=== PATIENT | male | born 1960 | race Caucasian/White ===

== ENCOUNTER 2017-06-15 08:33 | Emergency (ER) | payer BC ==
[~2017-06-15] VITALS: Ht 170.2 cm; Wt 95.3 kg
[2017-06-15 08:33] VITALS: BP_SYST 165
[2017-06-15] MEDS ORDERED: ONDANSETRON 4 MG ODT TAB PO ONE (08:45)
[2017-06-15] MEDS ORDERED: KETOROLAC TROMETHAMINE 60 MG/2 ML VIAL IM ONE (08:45)
[2017-06-15] MEDS ORDERED: HYDROmorphone 2 MG/ML VIAL IM ONE (08:45)
[2017-06-15] MEDS ORDERED: DIAZEPAM 5 MG TABLET (VALIUM) PO ONE (08:45)
[2017-06-15 10:10] VITALS: BP_SYST 135
== END 2017-06-15 10:10 | disposition home or self-care (01) ==
LOC: SED 08:33
DX: M54.5 Low back pain (principal)
CPT/HCPCS: 96372; 99284; J1170; J1885; Q0162

== ENCOUNTER 2017-08-09 14:05 | Emergency (ER) | payer BC ==
[~2017-08-09] VITALS: Ht 172.7 cm; Wt 93.0 kg
--- NOTE | 2017-08-09 14:55 | NUR ---
Patient to [facility] for evaluation. Side rails up. Report given to Rudi.
[2017-08-09 15:17] VITALS: BP_SYST 123
--- NOTE | 2017-08-09 15:22 | NUR ---
ER at bedside examining patient.
--- NOTE | 2017-08-09 15:23 | NUR ---
Pt brought by self, A&Ox4 ,pt c/o flu s/s, diaphoresis for 4 days and today he passed out, + KO, LAC noted on L eyebrow, skin pink and warm, pt follows commands, cap refill <3.
[2017-08-09] MEDS ORDERED: NACL 0.9% 1,000 ML IV ONE (15:30)
[2017-08-09 16:10] LABS: EOSINOPHILS % (AUTO) 0.1 % (0.0-4.0); HEMATOCRIT 48.3 % (36-54); HEMOGLOBIN 15.8 g/dL (14.0-18.0); LYMPHOCYTES # (AUTO) 0.8 K/uL (1.0-5.5); LYMPHOCYTES % (AUTO) 10.8 % (20.5-51.5); MEAN CORPUSCULAR HEMOGLOBIN 28 pg (27-31); MEAN CORPUSCULAR HGB CONC 33 % (32-36); MEAN CORPUSCULAR VOLUME 86 fL (79.0-98.0); MONOCYTES # (AUTO) 0.7 K/uL (0.0-1.0); MONOCYTES % (AUTO) 9.6 % (1.7-9.3); PLATELET COUNT (AUTO) 194 K/uL (130-430); RED BLOOD CELL COUNT(AUTO) 5.65 MIL/uL (4.2-6.2); RED CELL DISTRIBUTION WIDTH 12.2 % (9.0-15.0); WHITE BLOOD COUNT (AUTO) 7.4 K/uL (4.8-10.8)
[2017-08-09 16:11] LABS: NEUTROPHILS # (AUTO) 5.8 K/uL (1.8-7.7); NEUTROPHILS % (AUTO) 79.5 % (40.0-70.0)
[2017-08-09 16:19] LABS: INR 1.1 (0.80-1.20); PROTHROMBIN TIME 10.9 SECS (9.5-12.5)
[2017-08-09 16:33] LABS: ANION GAP 9 (5-15); CALCIUM 8.9 mg/dL (8.4-11.0); CHLORIDE 98 mmol/L (98-107); CREATININE 1.14 mg/dL (0.55-1.30); GLUCOSE 122 mg/dL (70-99); POTASSIUM 4.2 mmol/L (3.5-5.1); SODIUM SERUM 133 mmol/L (136-145); UREA NITROGEN, BLOOD 17 mg/dL (8-21)
[2017-08-09 16:39] LABS: ALANINE AMINOTRANSFERASE 54 U/L (12-78); ALBUMIN 3.7 g/dL (3.4-4.8); ASPARTATE AMINOTRANSFERASE 37 U/L (10-37); TOTAL BILIRUBIN 0.6 mg/dL (0.0-1.0)
[2017-08-09 16:46] LABS: GFR AFRICAN AMERICAN 85 mL/min (>90)
[2017-08-09 17:50] LABS: ALCOHOL, BLOOD < 3 mg/dL (<10)
[2017-08-09 18:15] LABS: ACETAMINOPHEN < 1 ug/mL (1-30)
--- NOTE | 2017-08-09 18:30 | NUR ---
Patient given written and verbal discharge instructions and verbalizes understanding. ER MD discussed with patient the results and treatment provided. Patient in stable condition. ID arm band removed. No prescripitions given. Patient educated on pain management and to follow up with PMD. Pain Scale 0/10. Opportunity for questions provided and answered.
[2017-08-09 18:44] VITALS: BP_SYST 122
== END 2017-08-09 18:44 | disposition home or self-care (01) ==
LOC: SED 14:05
DX: S01.81XA Laceration without foreign body of other part of head, initial encounter (principal); E86.1 Hypovolemia; E86.0 Dehydration; B34.9 Viral infection, unspecified; F17.210 Nicotine dependence, cigarettes, uncomplicated; W18.00XA Striking against unspecified object with subsequent fall, initial encounter; Y93.89 Activity, other specified; Y92.091 Bathroom in other non-institutional residence as the place of occurrence of the external cause; Y99.8 Other external cause status
CPT/HCPCS: 12011; 36415; 70450; 71010; 80053; 82550; 84484; 85025; 85610; 93005; 96360; 99285; G0480; G0481; G0482; J7030

== ENCOUNTER 2020-09-23 10:12 | Emergency (ER) | payer BC ==
[~2020-09-23] VITALS: Ht 170.2 cm; Wt 97.5 kg
[2020-09-23 10:13] VITALS: BP_SYST 123
[2020-09-23] MEDS ORDERED: MORPHINE 4 MG/ML INJ. SYRINGE IM ONE (10:30)
[2020-09-23] MEDS ORDERED: KETOROLAC TROMETHAMINE 30 MG VIAL IM ONE (10:30)
[2020-09-23] MEDS ORDERED: ONDANSETRON 4 MG ODT TAB PO ONE (10:30)
[2020-09-23 10:54] LABS: BILIRUBIN,URINE NEGATIVE (NEGATIVE); BLOOD, URINE NEGATIVE (NEGATIVE); CLARITY/URINE CLEAR (CLEAR); COLOR,URINE YELLOW (YELLOW); GLUCOSE,URINE NEGATIVE (NEGATIVE); KETONES,URINE NEGATIVE (NEGATIVE); LEUKOCYTE ESTERASE ,URINE NEGATIVE (NEGATIVE); NITRITE, URINE NEGATIVE (NEGATIVE); PROTEIN URINE NEGATIVE (NEGATIVE); UROBILINOGEN,URINE 0.2 (0.2-1.0)
[2020-09-23] MEDS ORDERED: TRAM100T28 PO (12:09)
[2020-09-23] MEDS ORDERED: CYCL-10 PO (12:09)
[2020-09-23] MEDS ORDERED: MORPHINE 2 MG/ML INJ. SYRINGE IM ONE (12:15)
[2020-09-23 12:45] VITALS: BP_SYST 147
== END 2020-09-23 12:45 | disposition home or self-care (01) ==
LOC: SED 10:12
DX: M54.5 Low back pain (principal); K76.0 Fatty (change of) liver, not elsewhere classified; Z79.899 Other long term (current) drug therapy
CPT/HCPCS: 74176; 76376; 81003; 96372; 99284; J1885; J2270 ×2; Q0162